=== PATIENT | female | born 1945 | race Caucasian/White ===

== ENCOUNTER 2016-11-30 10:42 | Emergency (ER) | payer OTHER, MEDICARE ==
[2016-11-30 10:56] VITALS: TEMP 36.7
[2016-11-30] MEDS ORDERED: B-COTAB53 PO (11:15)
[2016-11-30] MEDS ORDERED: ATEN-173 PO (11:15)
[2016-11-30] MEDS ORDERED: ASCO500T16 PO (11:15)
[2016-11-30] MEDS ORDERED: CHOL1TAB42 PO (11:15)
[2016-11-30] MEDS ORDERED: ATOR-22 PO (11:15)
[2016-11-30] MEDS ORDERED: LOSA1TAB PO (11:15)
[2016-11-30] MEDS ORDERED: WARF1TAB6 PO (11:15)
[2016-11-30] MEDS ORDERED: ACET-1256 PO (11:17)
--- NOTE | 2016-11-30 11:35 | EMERGENCY ROOM VISIT NOTE ---
History Report prepared by Sruthi: Andrew Bourne Under the Supervision of: Dr. Lety Caicedo D.O. First contact with patient: 11:09 Chief Complaint: ABDOMINAL PAIN Stated Complaint: ABD PAIN Nursing Triage Summary: pt is coumadin and fell at 5 am today and c/o left rib/abd pain History of Present Illness The patient is a 71 year old female who presents to the Emergency Room with complaints of persistent pain in the left rib area since approximately 0500 this morning. The patient fell when she was going to the bathroom and hit the edge of the bathtub with her ribs on the left side. The pain is worse with movement or coughing. The pain is not worse with deep breathing and she is not short of breath. She had 500 mg Tylenol this morning. The patient is in town for her granddaughter's graduation. She states that she thought she was in her own bathroom this morning. She reached for a wall which was not there and she fell. The patient was a little drowsy at that time as she had half a sleeping pill last night. She did not hit her head or lose consciousness. She denies any pain in her chest or abdomen, hip pain, extremity pain. The patient is on Coumadin for a history of PE x 2. Her last INR was 1.7. Source of History: patient Onset: 0500 this morning Position: other (left rib area) Timing: other (persistent) Modifying Factors (Worsening): movement Associated Symptoms: No LOC, No abdominal pain, No chest pain, No headache Review of Systems See HPI for pertinent positives & negatives. A total of 10 systems reviewed and were otherwise negative. Past Medical & Surgical Medical Problems: (1) HTN (hypertension) (2) Pulmonary embolism Family History FHx: cancer Hypertension Social History Smoking Status: Never Smoker Marital Status: Housing Status: lives with family Current/Historical Medications Scheduled Acetaminophen (Tylenol), 500 MG PO DAILY Ascorbic Acid (Ascorbic Acid), 500 MG PO DAILY Atenolol (Tenormin), 25 MG PO DAILY Atorvastatin (Lipitor), 20 MG PO DAILY B-Complex W/ Folic Acid (B Complex), 1 TAB PO DAILY Cholecalciferol (Vitamin D), 5,000 UNITS PO DAILY Losartan Potassium (Cozaar), 25 MG PO BID Warfarin Sod (Jantoven), 1.5 MG PO Q2D Warfarin Sod (Jantoven), 2 MG PO Q2D Allergies Coded Allergies: NSAIDs (Unverified Allergy, Severe, SWELLING, 11/30/16) Physical Exam Vital Signs Date Time Temp Pulse Resp B/P Pulse Ox O2 Delivery O2 Flow Rate FiO2 11/30/16 15:09 62 18 148/75 98 Room Air 11/30/16 13:50 64 20 133/63 98 Room Air 11/30/16 12:25 63 20 184/71 97 Room Air 11/30/16 10:56 36.7 71 18 155/80 98 Room Air Physical Exam GENERAL: alert, well appearing, well nourished, no distress, non-toxic EYE EXAM: normal conjunctiva, PERRL and EOM's grossly intact OROPHARYNX: no exudate, no erythema, lips, buccal mucosa, and tongue normal and mucous membranes are moist NECK: supple, no nuchal rigidity, no adenopathy, non-tender LUNGS: Clear to auscultation. Normal chest wall mechanics HEART: no murmurs, S1 normal and S2 normal CHEST: Point tenderness of the left anterior ribs over the 7th or 8th rib area, no crepitus, no stepoff, no ecchymosis. No other evidence of trauma. ABDOMEN: abdomen soft, non-tender. BACK: Back is symmetrical on inspection and there is no deformity, no midline tenderness, no CVA tenderness. SKIN: no rashes and no bruising UPPER EXTREMITIES: upper extremities are grossly normal. LOWER EXTREMITIES: No pitting edema. Normal pulses and sensorimotor function. NEURO EXAM: Normal sensorium, cranial nerves II-XII grossly intact, normal speech, no gross weakness of arms, no gross weakness of legs. Gross sensation intact. Medical Decision & Procedures ER Provider Diagnostic Interpretation: Xray results per the radiologist and my interpretation. Other results have been interpreted by the radiologist and reviewed by me. ABDOMEN AND PELVIS CT WITH IV CONTRAST CT DOSE: 775.97 mGy.cm HISTORY: Trauma. Pain. trauma left side pain TECHNIQUE: Multiaxial CT images of the abdomen and pelvis were performed following the use of intravenous contrast. COMPARISON STUDY: None. FINDINGS: Lung bases are clear. Liver spleen and pancreas are unremarkable. Kidneys enhance uniformly. Bowel pattern is nonobstructive. Moderate increase in fecal load throughout the colon and rectosigmoid. Bladder is midline. No free fluid within the pelvic cul-de-sac. IMPRESSION: No acute process Electronically signed by: Burke Lara M.D. 11/30/2016 2:34 PM Dictated Date/Time: 11/30/2016 2:[address] WITH CONTRAST CT DOSE: HISTORY: Trauma. Pain. trauma, left side pain TECHNIQUE: Multiaxial CT images of the chest were performed following the intravenous administration of contrast. COMPARISON: None. FINDINGS: The lungs are clear. The mediastinal vascular structures are within normal limits. No mediastinal or hilar lymphadenopathy. No pleural effusion or pneumothorax. Limited views of the upper abdomen demonstrate a normal liver and spleen. IMPRESSION: No significant abnormality identified within the chest. Electronically signed by: Burke Lara M.D. 11/30/2016 2:27 PM Dictated Date/Time: 11/30/2016 2:26 PM LEFT RIBS UNILATERAL WITH PA CHEST CLINICAL HISTORY: trauma pain COMPARISON STUDY: None FINDINGS: Negative study IMPRESSION: Negative study. Electronically signed by: Burke Lara M.D. 11/30/2016 1:02 PM Dictated Date/Time: 11/30/2016 1:01 PM Laboratory Results 11/30/16 12:00 Red Blood Count 4.49, Mean Corpuscular Volume 91.3, Mean Corpuscular Hemoglobin 29.0, Mean Corpuscular Hemoglobin Concent 31.7, Mean Platelet Volume 9.5, Neutrophils (%) (Auto) 66.3, Lymphocytes (%) (Auto) 22.9, Monocytes (%) (Auto) 8.4, Eosinophils (%) (Auto) 2.0, Basophils (%) (Auto) 0.2, Neutrophils # (Auto) 5.68, Lymphocytes # (Auto) 1.96, Monocytes # (Auto) 0.72, Eosinophils # (Auto) 0.17, Basophils # (Auto) 0.02 11/30/16 12:00 Test 11/30/16 12:00 White Blood Count 8.57 K/uL (4.8-10.8) Red Blood Count 4.49 M/uL (4.2-5.4) Hemoglobin 13.0 g/dL (12.0-16.0) Hematocrit 41.0 % (37-47) Mean Corpuscular Volume 91.3 fL (80-100) Mean Corpuscular Hemoglobin 29.0 pg (25-34) Mean Corpuscular Hemoglobin Concent 31.7 g/dl (32-36) Platelet Count 349 K/uL (130-400) Mean Platelet Volume 9.5 fL (7.4-10.4) Neutrophils (%) (Auto) 66.3 % Lymphocytes (%) (Auto) 22.9 % Monocytes (%) (Auto) 8.4 % Eosinophils (%) (Auto) 2.0 % Basophils (%) (Auto) 0.2 % Neutrophils # (Auto) 5.68 K/uL (1.4-6.5) Lymphocytes # (Auto) 1.96 K/uL (1.2-3.4) Monocytes # (Auto) 0.72 K/uL (0.11-0.59) Eosinophils # (Auto) 0.17 K/uL (0-0.5) Basophils # (Auto) 0.02 K/uL (0-0.2) RDW Standard Deviation 50.1 fL (36.4-46.3) RDW Coefficient of Variation 14.8 % (11.5-14.5) Immature Granulocyte % (Auto) 0.2 % Immature Granulocyte # (Auto) 0.02 K/uL (0.00-0.02) Prothrombin Time 15.5 SECONDS (9.0-12.0) Prothromb Time International Ratio 1.4 (0.9-1.1) Anion Gap 5.0 mmol/L (3-11) Estimated GFR () 107.2 Estimated GFR (Non- 92.5 BUN/Creatinine Ratio 41.3 (10-20) Calcium Level 8.9 mg/dl (8.5-10.1) Total Bilirubin 0.5 mg/dl (0.2-1) Aspartate Amino Transf (AST/SGOT) 22 U/L (15-37) Alanine Aminotransferase (ALT/SGPT) 30 U/L (12-78) Alkaline Phosphatase 71 U/L (45-117) Total Protein 6.7 gm/dl (6.4-8.2) Albumin 3.2 gm/dl (3.4-5.0) Globulin 3.5 gm/dl (2.5-4.0) Albumin/Globulin Ratio 0.9 (0.9-2) Laboratory results per my review. Medications Administered Medications (Trade) Dose Ordered Sig/Missy Route Start Time Stop Time Status Last Admin Dose Admin Acetaminophen (Tylenol Tab) 650 mg NOW STAT PO 11/30/16 12:02 11/30/16 12:03 DC 11/30/16 12:23 650 MG Losartan Potassium (coZAAR TAB) 25 mg NOW ONCE PO 11/30/16 13:00 11/30/16 13:01 DC 11/30/16 12:56 25 MG Enoxaparin Sodium (Lovenox Inj) 111 mg TODAY@1530 ONCE SQ 11/30/16 15:30 11/30/16 15:31 DC 11/30/16 15:20 111 MG ED Course 1125: The patient was evaluated in room C4. A complete history and physical exam was performed. 1202: Tylenol 650 mg PO. 1300: Cozaar 25 mg PO. 1320: Bedside fast exam was negative but there was poor visualization of the splenorenal junction. 1530: Lovenox 111 mg SQ. 0900: Cozaar 25 mg PO. 1450: Upon reevaluation, the patient is feeling better. I discussed the findings and the treatment plan with the patient. She verbalizes agreement and understanding. She was discharged. Medical Decision Differential diagnosis includes rib fracture, pneumothorax, hematoma, pleural effusion, pulmonary contusion, intraabdominal hemorrhage, splenic injury. Given isolated pain, initially discussed at bedside with patient x-rays and ultrasound given patient's several hours out from original injury. Due to persistence of pain, additional bedside discussion as concern over patient's anticoagulation. Patient's who is a physician verbalized understanding and preferred to pursue CAT scan as precaution. CAT scans ultimately negative for any acute injury. Patient has been given copies of her labs and imaging reports to follow-up with her family doctor. Discussed her subtherapeutic INR given risk for thromboembolism however this may have been protective in the setting of an acute traumatic injury as I do not suspect any additional occult trauma or bleeding. Discussed given negative CAT scans, bridging patient. Patient perform supportive care INR testing at home herself, and we'll continue to monitor her INR daily and follow-up next week with her PCP. Discussed this with her family doctor the beginning of the week. Discussed with her symptoms to watch and return for, she verbalized understanding as to the and they were agreeable with plan for DC. Impression Primary Impression: Fall Additional Impressions: Rib pain Subtherapeutic anticoagulation Scribe Attestation The scribe's documentation has been prepared under my direction and personally reviewed by me in its entirety. I confirm that the note above accurately reflects all work, treatment, procedures, and medical decision making performed by me. Departure Information Dispostion Home / Self-Care Forms HOME CARE DOCUMENTATION FORM, IMPORTANT VISIT INFORMATION Patient Instructions My [facility] Additional Instructions Please continue taking her Coumadin daily. Your INR today was 1.4. You may continue using Tylenol as needed for pain. If you develop worsening pain, dizziness, vomiting, fevers, trouble breathing, or you have any other new concerns, please return to the emergency room immediately. Please continue your other medications as prescribed. Please have your INR rechecked next week. Problem Qualifiers Primary Impression: Fall Encounter type: initial encounter Qualified Codes: W19.XXXA - Unspecified fall, initial encounter
[2016-11-30] MEDS ORDERED: ACETAMINOPHEN 325 MG TAB PO STA (12:02)
[2016-11-30 12:17] LABS: BASO % 0.2 %; BASO ABS # 0.02 K/uL (0-0.2); COMPLETE YES; IG% 0.2 %; LYMPH % 22.9 %; LYMPH ABS # 1.96 K/uL (1.2-3.4); MEAN CELL VOLUME 91.3 fL (80-100); MEAN CORPUSCULAR HGB CONC 31.7 g/dl (32-36); MEAN PLATELET VOLUME 9.5 fL (7.4-10.4); MONO % 8.4 %; NEUT % 66.3 %; PLATELET COUNT 349 K/uL (130-400); RED BLOOD COUNT 4.49 M/uL (4.2-5.4); WHITE BLOOD COUNT 8.57 K/uL (4.8-10.8)
[2016-11-30 12:31] LABS: INR 1.4 (0.9-1.1); PROTHROMBIN TIME (PATIENT) 15.5 SECONDS (9.0-12.0)
[2016-11-30 12:50] LABS: ALT/SGPT 30 U/L (12-78); AST/SGOT 22 U/L (15-37); BLOOD UREA NITROGEN 23 mg/dl (7-18); BUN/CREATININE RATIO 41.3 (10-20); CALCIUM 8.9 mg/dl (8.5-10.1); CARBON DIOXIDE 28 mmol/L (21-32); CHLORIDE 112 mmol/L (98-107); CREATININE 0.56 mg/dl (0.60-1.20); GLUCOSE 84 mg/dl (70-99); POTASSIUM 3.8 mmol/L (3.5-5.1); SODIUM 145 mmol/L (136-145)
[2016-11-30 12:53] LABS: ALB/GLOB RATIO 0.9 (0.9-2); ALKALINE PHOSPHATASE 71 U/L (45-117)
[2016-11-30] MEDS ORDERED: LOSARTAN POTASSIUM 25 MG TAB PO ONE (13:00)
--- NOTE | 2016-11-30 13:03 | DIAGNOSTIC IMAGING REPORT ---
LEFT RIBS UNILATERAL WITH PA CHEST CLINICAL HISTORY: trauma pain COMPARISON STUDY: None FINDINGS: Negative study IMPRESSION: Negative study. Electronically signed by: Burke Lara M.D. 11/30/2016 1:02 PM Dictated Date/Time: 11/30/2016 1:01 PM
[2016-11-30] MEDS ORDERED: OPTIRAY 320 IV PRN (13:45)
--- NOTE | 2016-11-30 14:29 | DIAGNOSTIC IMAGING REPORT ---
CHEST CT WITH CONTRAST CT DOSE: HISTORY: Trauma. Pain. trauma, left side pain TECHNIQUE: Multiaxial CT images of the chest were performed following the intravenous administration of contrast. COMPARISON: None. FINDINGS: The lungs are clear. The mediastinal vascular structures are within normal limits. No mediastinal or hilar lymphadenopathy. No pleural effusion or pneumothorax. Limited views of the upper abdomen demonstrate a normal liver and spleen. IMPRESSION: No significant abnormality identified within the chest. Electronically signed by: Burke Lara M.D. 11/30/2016 2:27 PM Dictated Date/Time: 11/30/2016 2:26 PM
--- NOTE | 2016-11-30 14:36 | DIAGNOSTIC IMAGING REPORT ---
ABDOMEN AND PELVIS CT WITH IV CONTRAST CT DOSE: 775.97 mGy.cm HISTORY: Trauma. Pain. trauma left side pain TECHNIQUE: Multiaxial CT images of the abdomen and pelvis were performed following the use of intravenous contrast. COMPARISON STUDY: None. FINDINGS: Lung bases are clear. Liver spleen and pancreas are unremarkable. Kidneys enhance uniformly. Bowel pattern is nonobstructive. Moderate increase in fecal load throughout the colon and rectosigmoid. Bladder is midline. No free fluid within the pelvic cul-de-sac. IMPRESSION: No acute process Electronically signed by: Burke Lara M.D. 11/30/2016 2:34 PM Dictated Date/Time: 11/30/2016 2:32 PM
[2016-11-30] MEDS ORDERED: ENOXAPARIN 1.5 MG/KG SQ STA (14:53)
[2016-11-30 15:09] VITALS: BP 148/75; PULSE 62; O2SAT 98
[2016-11-30] MEDS ORDERED: ENOXAPARIN 120 MG/0.8 ML SYR SQ ONE (15:30)
[2016-12-01] MEDS ORDERED: LOSARTAN POTASSIUM 25 MG TAB PO SCH (09:00)
== END 2016-11-30 15:21 | disposition home or self-care (01) ==
LOC: C.EDB 10:46 → C.EDC 15:21
DX: R07.81 Pleurodynia (principal); R79.1 Abnormal coagulation profile; W19.XXXA Unspecified fall, initial encounter; W22.09XA Striking against other stationary object, initial encounter; Z79.01 Long term (current) use of anticoagulants; Z86.711 Personal history of pulmonary embolism; I10 Essential (primary) hypertension; Z79.899 Other long term (current) drug therapy